=== PATIENT | male | born 1975 | race Caucasian/White ===

== ENCOUNTER 2017-01-25 18:53 | Emergency (ER) | payer BC ==
[~2017-01-25] VITALS: Ht 170.2 cm; Wt 122.5 kg
[~2017-01-25 18:53] MED LIST: CYCL10TA9 PO; HYDR-3820 PO; OMEP20TA7 PO; PRD20T PO
[2017-01-25 20:05] LABS: KETONES,URINE 1+ (NEGATIVE); LEUKOCYTE ESTERASE ,URINE 1+ (NEGATIVE); NITRITE,URINE NEGATIVE (NEGATIVE); PH,URINE 5 (5-9); PROTEIN,URINE 2+ (NEGATIVE); UROBILINOGEN,URINE 1 MG/DL (NORMAL)
[2017-01-25 20:23] LABS: BILIRUBIN,URINE 2+ (NEGATIVE)
[2017-01-25 20:24] LABS: CALCIUM OXALATE CRYSTALS,UR FEW /LPF; HYALINE CASTS, URINE >50 /LPF
[2017-01-25] MEDS ORDERED: ENALAPRIL (20:28)
[2017-01-25] MEDS ORDERED: NS IV 1000 ML 1,000 ML IV ONE (21:05)
[2017-01-25 21:15] LABS: BASOPHILS % (AUTO) 0 % (0-10); EOSINOPHILS % (AUTO) 0 % (0-10); LYMPHOCYTES # (AUTO) 0.9 X 10^3 (1.0-4.0); LYMPHOCYTES % (AUTO) 15 % (12-44); MEAN CORPUSCULAR HEMOGLOBIN 30 PG (25-34); MEAN CORPUSCULAR HGB CONC 34 G/DL (32-36); MEAN CORPUSCULAR VOLUME 87 FL (80-99); MEAN PLATELET VOLUME 10.3 FL (7.4-10.4); MONOCYTES # (AUTO) 0.9 X 10^3 (0.0-1.0); MONOCYTES % (AUTO) 16 % (0-12); NEUTROPHILS # (AUTO) 3.8 X 10^3 (1.8-7.8); NEUTROPHILS % (AUTO) 68 % (42-75); PLATELET COUNT 214 10^3/uL (130-400); RED CELL DISTRIBUTION WIDTH 13.8 % (10.0-14.5); WHITE BLOOD COUNT 5.6 10^3/uL (4.3-11.0)
[2017-01-25] MEDS ORDERED: ONDANSETRON 4 MG/2 ML (SDV) Z0FRAN IVP ONE (21:15)
[2017-01-25] MEDS ORDERED: KETOROLAC 30 MG/ML VIAL IVP ONE (21:15)
[2017-01-25 21:33] LABS: ALANINE AMINOTRANSFERASE 344 U/L (0-55); ALBUMIN 4.2 GM/DL (3.2-4.5); ANION GAP 12 MMOL/L (5-14); ASPARTATE AMINO TRANSFERASE 222 U/L (5-34); BILIRUBIN,TOTAL 0.9 MG/DL (0.1-1.0); BLOOD UREA NITROGEN 20 MG/DL (7-18); BUN/CREATININE RATIO 16; CALCIUM 9.4 MG/DL (8.5-10.1); CARBON DIOXIDE 19 MMOL/L (21-32); CHLORIDE 103 MMOL/L (98-107); CREATININE SERUM 1.25 MG/DL (0.60-1.30); GFR ESTIMATED > 60; GLUCOSE 141 MG/DL (70-105); POTASSIUM 3.9 MMOL/L (3.6-5.0); SODIUM 134 MMOL/L (135-145); TOTAL PROTEIN 7.6 GM/DL (6.4-8.2)
[2017-01-25] MEDS ORDERED: RX-ONDANSETRON 4 MG ODT (ZOFRAN) PPK #4 SL STA (23:22)
[2017-01-25] MEDS ORDERED: CIPROFLOXACIN 500 MG (CIPRO) TABLET PO ONE (23:30)
--- NOTE | 2017-01-25 23:32 | ED Abdominal Pain ---
General Chief Complaint: Abdominal/GI Problems Stated Complaint: ABD PAIN Nursing Triage Note: ABD PAIN SINCE MONDAY, WORSE TODAY. REPORTS PAIN RADIATES FROM LLQ TO TESTICLES. ALSO REPORTS N/V/D. NO OTHER C/O VOICED Sepsis Screen: No Definite Risk Source of Information: Patient Exam Limitations: No Limitations History of Present Illness Time Seen By Provider: 21:06 Initial Comments This 41-year-old gentleman presents to the emergency room with complaints of generalized pain in the abdomen since January 22 with associated nausea, vomiting , dry heaves, diarrhea, and headache. He has also developed pain in his testicles 2 days. He denies fever. His primary care provider is Deborah at the [facility] in [place]. Allergies and Home Medications Allergies Coded Allergies: No Known Drug Allergies (Unverified , 03/14/16) Home Medications Ciprofloxacin HCl 500 Mg Tablet, 500 MG PO BID, #20 Prescribed by: IVON JERRY on 01/26/17 0040 Omeprazole 20 Mg Tablet.dr, 20 MG PO, (Reported) [Enalapril] , (Reported) Review of Systems Constitutional: no symptoms reported EENTM: No Symptoms Reported Respiratory: No Symptoms Reported Cardiovascular: No Symptoms Reported Gastrointestinal: See HPI Genitourinary: See HPI Musculoskeletal: no symptoms reported Skin: no symptoms reported Psychiatric/Neurological: No Symptoms Reported Endocrine: No Symptoms Reported Past [id number]-[id number] Hx Patient Social History Alcohol Use: Denies Use Recreational Drug Use: No (HX OF IV) Smoking Status: Former Smoker Former Smoker, Quit: Jun 05, 2011 Recent Foreign Travel: No Contact w/Someone Who Travel: No Recent Infectious Disease Expo: No Recent Hopitalizations: No Physical Abuse: No Sexual Abuse: No Mistreated: No Fear: No Seasonal Allergies Seasonal Allergies: No Surgeries History of Surgeries: Yes (carpal tunnel, cyst removal ) Surgeries: Adenoidectomy, Orthopedic, Tonsillectomy Respiratory History of Respiratory Disorde: No Cardiovascular History of Cardiac Disorders: Yes Cardiac Disorders: Hypertension Neurological History of Neurological Disord: No Reproductive System Hx Reproductive Disorders: No Gastrointestinal History of Gastrointestinal Di: Yes Gastrointestinal Disorders: Gastroesophageal Reflux Musculoskeletal History of Musculoskeletal Dis: No Endocrine History of Endocrine Disorders: No Cancer History of Cancer: No Psychosocial History of Psychiatric Problem: No Suicide Risk Score: 0 Integumentary History of Skin or Integumenta: No Blood Transfusions History of Blood Disorders: No Family Medical History Significant Family History: No Pertinent Family Hx Physical Exam Vital Signs VS - Last 72 Hours, by Label 01/25/17 01/26/17 19:52 00:32 Temp 99.4 98.6 Pulse 118 104 Resp 20 18 B/P (MAP) 148/106 Pulse Ox 98 99 O2 Delivery Room Air Room Air Capillary Refill : Less Than 3 Seconds General Appearance: WD/WN, no apparent distress HEENT: PERRL/EOMI, normal ENT inspection, pharynx normal Neck: normal inspection Respiratory: lungs clear, normal breath sounds, no respiratory distress, no accessory muscle use Cardiovascular: regular rate, rhythm, no edema, no murmur Gastrointestinal: normal bowel sounds, soft, distended, tenderness (Mild generalized tenderness) Genital/Rectal: tenderness (Posterior testicular tenderness bilaterally. 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, no motor/sensory deficits, alert, normal mood/affect, oriented x 3 Skin: normal color, warm/dry Progress/Results/Core Measures Results/Orders Lab Results Laboratory Tests Test 01/25/17 19:55 01/25/17 20:01 Range/Units Urine Color BRITTANY H Urine Clarity SLIGHTLY CLOUDY Urine pH 5 5-9 Urine Specific [place] 1.025 H 1.016-1.022 Urine Protein 2+ H NEGATIVE Urine Glucose (UA) NEGATIVE NEGATIVE Urine Ketones 1+ H NEGATIVE Urine Nitrite NEGATIVE NEGATIVE Urine Bilirubin 2+ H NEGATIVE Urine Urobilinogen 1 NORMAL MG/DL Urine Leukocyte Esterase 1+ H NEGATIVE Urine RBC (Auto) NEGATIVE NEGATIVE Urine RBC NONE /HPF Urine WBC 2-5 /HPF Urine Crystals PRESENT H /LPF Urine Calcium Oxalate Crystals FEW H /LPF Urine Bacteria NONE /HPF Urine Casts PRESENT /LPF Urine Hyaline Casts >50 H /LPF Urine Mucus MODERATE H /LPF Urine Culture Indicated NO White Blood Count 5.6 4.3-11.0 10^3/uL Red Blood Count 5.50 4.35-5.85 10^6/uL Hemoglobin 16.3 13.3-17.7 G/DL Hematocrit 48 40-54 % Mean Corpuscular Volume 87 80-99 FL Mean Corpuscular Hemoglobin 30 25-34 PG Mean Corpuscular Hemoglobin Concent 34 32-36 G/DL Red Cell Distribution Width 13.8 10.0-14.5 % Platelet Count 214 130-400 10^3/uL Mean Platelet Volume 10.3 7.4-10.4 FL Neutrophils (%) (Auto) 68 42-75 % Lymphocytes (%) (Auto) 15 12-44 % Monocytes (%) (Auto) 16 H 0-12 % Eosinophils (%) (Auto) 0 0-10 % Basophils (%) (Auto) 0 0-10 % Neutrophils # (Auto) 3.8 1.8-7.8 X 10^3 Lymphocytes # (Auto) 0.9 L 1.0-4.0 X 10^3 Monocytes # (Auto) 0.9 0.0-1.0 X 10^3 Eosinophils # (Auto) 0.0 0.0-0.3 10^3/uL Basophils # (Auto) 0.0 0.0-0.1 10^3/uL Sodium Level 134 L 135-145 MMOL/L Potassium Level 3.9 3.6-5.0 MMOL/L Chloride Level 103 98-107 MMOL/L Carbon Dioxide Level 19 L 21-32 MMOL/L Anion Gap 12 5-14 MMOL/L Blood Urea Nitrogen 20 H 7-18 MG/DL Creatinine 1.25 0.60-1.30 MG/DL Estimat Glomerular Filtration Rate > 60 BUN/Creatinine Ratio 16 Glucose Level 141 H 70-105 MG/DL Calcium Level 9.4 8.5-10.1 MG/DL Total Bilirubin 0.9 0.1-1.0 MG/DL Aspartate Amino Transf (AST/SGOT) 222 H 5-34 U/L Alanine Aminotransferase (ALT/SGPT) 344 H 0-55 U/L Alkaline Phosphatase 95 40-136 U/L Total Protein 7.6 6.4-8.2 GM/DL Albumin 4.2 3.2-4.5 GM/DL My Orders Orders - IVON LEVY MD Ua Culture If Indicated (01/25/17 19:51) Cbc With Automated Diff (01/25/17 21:05) Comprehensive Metabolic Panel (01/25/17 21:05) Saline Lock/Iv-Start (01/25/17 21:05) Ns Iv 1000 Ml (Sodium Chloride 0.9%) (01/25/17 21:05) Ketorolac Injection (Toradol Injection) (01/25/17 21:15) Ondansetron Injection (Zofran Injectio (01/25/17 21:15) Rx-Ondansetron Po (Rx-Zofran Po) (01/25/17 23:22) Ciprofloxacin Tablet (Cipro Tablet) (01/25/17 23:30) Hepatitis Panel Acute (01/26/17 00:43) Us Scrotum (Testicle) 20015 (01/26/17 ) Medications Given in ED Current Medications Medications Dose Ordered Sig/Kul[place]inder Route Start Time Stop Time Status Last Admin Dose Admin Ciprofloxacin 500 mg ONCE ONCE PO 01/25/17 23:30 01/25/17 23:31 DC 01/25/17 23:33 500 MG Ketorolac Tromethamine 30 mg ONCE ONCE IVP 01/25/17 21:15 01/25/17 21:16 DC 01/25/17 21:18 30 MG Ondansetron HCl 8 mg ONCE ONCE IVP 01/25/17 21:15 01/25/17 21:16 DC 01/25/17 21:18 8 MG Sodium Chloride 1,000 ml @ 0 mls/hr Q0M ONCE IV 01/25/17 21:05 01/25/17 21:06 DC 01/25/17 21:18 1,000 MLS/HR Vital Signs/I&O Vital Sign - Last 12Hours 01/25/17 01/26/17 19:52 00:32 Temp 99.4 98.6 Pulse 118 104 Resp 20 18 B/P (MAP) 148/106 Pulse Ox 98 99 O2 Delivery Room Air Room Air Blood Pressure Mean: 120 Progress Note : Progress Note Patient was found to have elevated transaminases that his labs were otherwise unremarkable. Patient has been told he has fatty liver disease. He also has a history of IV drug use but has been tested for hepatitis C since then. A repeat hepatitis screen was ordered. His testicular pain is equal bilaterally and improved with Toradol. It has been present since January 22. This is felt to likely be correlated with a viral syndrome that's also causing the nausea, vomiting, and diarrhea. He is being started on Cipro for possible epididymitis. Scrotal ultrasound showed no acute abnormalities. Diagnostic Imaging Diagonstic Imaging: Ultrasound Comments Scrotal ultrasound report reviewed. No acute abnormalities. Departure Impression Impression: Primary Impression: Nausea vomiting and diarrhea Additional Impressions: Elevated transaminase level Testicular pain Disposition: 01 HOME, SELF-CARE Condition: Improved Departure-Patient Inst. Referrals: NO,LOCAL PHYSICIAN (PCP) Primary Care Physician Patient Instructions: Epididymitis, Nausea and Vomiting, Adult Add. Discharge Instructions: You may take an anti-inflammatory such as ibuprofen or meloxicam for pain. Complete your antibiotic as prescribed. Return to the ER symptoms worsen. Follow-up with a primary care provider soon as possible. Dissolve the Zofran ( ondansetron) under the tongue every 4 hours as needed for nausea and vomiting. Drink plenty of clear liquids. All discharge instructions reviewed with patient and/or family. Voiced understanding. Scripts Ciprofloxacin HCl (Cipro) 500 Mg Tablet 500 MG PO BID, #20 TAB Prov: IVON LEVY MD 01/26/17 IVON LEVY MD Jan 25, 2017 11:32 pm
[2017-01-26 00:32] VITALS: BP 166/99
[2017-01-26] MEDS ORDERED: CIPR-225 PO ×2 (00:39→00:40)
--- NOTE | 2017-01-26 06:35 | Diagnostic Imaging Report ---
INDICATION: Testicular pain. TECHNIQUE: Real-time grayscale sonographic imaging and color vascular evaluation of both testicles was performed. CORRELATION STUDY: None FINDINGS: RIGHT testicle measures 4.0 x 2.6 x 3.0 cm. The right testicle is unremarkable in echogenicity. No focal testicular mass is demonstrated. There is color vascular flow. The right epididymis is unremarkable. LEFT testicle measures 4.0 x 2.6 x 3.0 cm. The left testicle is normal in echogenicity. No focal testicular mass is demonstrated. There is color vascular signal. The left epididymis is unremarkable. Small bilateral hydroceles. IMPRESSION: 1. Negative testicular sonogram. A preliminary report was provided by [email or web address]. Dictated by: Dictated on workstation # [id number]
[2017-01-27 06:47] LABS: HCV INDEX >11.00 (0.00-0.79)
== END 2017-01-26 00:31 | disposition home or self-care (01) ==
LOC: EDUNIT# 18:53 → ER 18:55
DX: N50.811 Right testicular pain (principal); N50.812 Left testicular pain; R11.2 Nausea with vomiting, unspecified; R74.0 Nonspecific elevation of levels of transaminase and lactic acid dehydrogenase [LDH]; I10 Essential (primary) hypertension; K21.9 Gastro-esophageal reflux disease without esophagitis; Z87.891 Personal history of nicotine dependence; Z90.89 Acquired absence of other organs
CPT/HCPCS: 36415; 76870; 80053; 80074; 81000; 85025; 96361; 96374; 96375